=== PATIENT | male | born 1980 ===

== ENCOUNTER 2023-10-03 16:12 | Observation (INO) | payer OTHER ==
[~2023-10-03] VITALS: Ht 172.7 cm; Wt 83.0 kg
[~2023-10-03 16:12] MED LIST: Bactrim Ds Tab1 EACH PO; CEPH500 PO; HYDHCL25 PO; IBUP800 PO; TRIA15CR3 TOP; Ultram50 MG PO
[2023-10-03] MEDS ORDERED: Prinivil10 MG PO (16:34)
[2023-10-03 16:42] LABS: Source, Urine Clean Catch
[2023-10-03 16:46] LABS: Appearance, Urine Clear (Clear); Bilirubin, Urine Neg (Neg); Blood, Urine Neg (Neg); Color, Urine Amber (P-Yellow); Glucose Qualitative, Urine Neg (Neg); Ketones, Urine Neg (Neg); Leukocyte Esterase, Urine 1+ (Neg); Nitrite, Urine Neg (Neg); Protein, Urine 1+ (Neg); Specific Gravity, Urine 1.015 (1.003-1.022); Urobilinogen, Urine 4+ (Normal)
[2023-10-03 17:02] LABS: Bacteria Few /hpf; Hyaline Casts 0-2 /lpf (0-2); Mucus Mod (0-Heavy); Red Blood Cells, Urine 0-2 /hpf (0-2); Squamous Epithelial Cells Few /hpf (Few)
[2023-10-03 17:33] LABS: U Amphetamine Screen DETECTED; U Barbituate Screen Not Detected; U Benzodiazapine Screen Not Detected; U Cocaine Screen Not Detected; U Methamphetamine Screen DETECTED
[2023-10-03 17:34] LABS: U Buprenorphine Screen Not Detected; U Cannabinoids Screen Not Detected; U Methadone Screen Not Detected; U Opiates Screen Not Detected; U Oxycodone Screen Not Detected; U Phencyclidine Screen Not Detected
[2023-10-03 17:59] LABS: BASOPHILS ABSOLUTE AUTO 0.04 K/mm3 (0.00-0.23); BASOPHILS PERCENT AUTO 1 % (0-2); EOSINOPHILS ABSOLUTE AUTO 0.23 K/mm3 (0.00-0.68); EOSINOPHILS PERCENT AUTO 4 % (0-6); Hematocrit 44.6 % (37.0-53.0); IMMATURE GRAN ABSOLUTE AUTO 0.01 K/mm3 (0.00-0.10); IMMATURE GRAN PERCENT AUTO 0 % (0-1); LYMPHOCYTES ABSOLUTE AUTO 2.45 K/mm3 (0.84-5.20); LYMPHOCYTES PERCENT AUTO 38 % (21-46); MONOCYTES ABSOLUTE AUTO 0.46 K/mm3 (0.16-1.47); MONOCYTES PERCENT AUTO 7 % (4-13); Mean Corpuscular HGB 26.3 pg (26.0-34.0); Mean Corpuscular HGB Conc 33.6 g/dL (31.5-36.5); Mean Corpuscular Volume 78 fL (80-100); Mean Platelet Volume 10.8 fL (9.1-12.4); NEUTROPHILS ABSOLUTE AUTO 3.32 K/mm3 (1.96-9.15); NEUTROPHILS PERCENT AUTO 51 % (41-73); Platelet Count 268 K/mm3 (150-400); RDW Coefficient Variation 13.9 % (11.7-14.2); RDW Standard Deviation 38.8 fL (35.1-46.3); Red Blood Cell Count 5.71 M/mm3 (4.30-5.90); White Blood Cell Count 6.51 K/mm3 (4.00-11.30)
[2023-10-03 18:20] LABS: Ethanol (Alcohol), Blood, Med 150 mg/dL; Salicylate <1.7 mg/dL (2.8-20.0)
[2023-10-03 18:21] LABS: Alanine Aminotransfer (ALT/SGP 306 U/L (12-78); Albumin, Blood 3.6 g/dL (3.4-5.0); Albumin/Globulin Ratio 0.9 (0.8-1.8); Alk Phos 98 U/L (50-136); Anion Gap 5 mmol/L (6-16); Aspartate Aminotrans (AST/SGOT 226 U/L (12-37); Bilirubin, Total 0.7 mg/dL (0.1-1.0); Blood Urea Nitrogen 14 mg/dL (8-24); CO2, Blood 25 mmol/L (21-32); Calcium, Blood 8.6 mg/dL (8.5-10.1); Chloride, Blood 108 mmol/L (98-108); Creatinine, Blood 0.82 mg/dL (0.60-1.20); Globulin, Blood 4.1 g/dL (2.2-4.0); Glomerular Filtration Rate 114 (60-); Glucose, Blood 112 mg/dL (70-99); Potassium, Blood 3.1 mmol/L (3.5-5.5); Sodium, Blood 138 mmol/L (136-145); Total Protein, Blood 7.7 g/dL (6.4-8.2)
[2023-10-03 18:35] LABS: Acetaminophen, Random <2.0 ug/mL (10.0-30.0)
[2023-10-03] MEDS ORDERED: Potassium Chloride 20 MEQ TabCR PO ONE (18:45)
[2023-10-03] MEDS ORDERED: Folic Acid 1 MG TAB PO ONE (18:50)
[2023-10-03] MEDS ORDERED: Thiamine HCl 100 MG Tab PO ONE (18:50)
[2023-10-03] MEDS ORDERED: LORazepam 1 MG Tab PO SCH (21:00)
[2023-10-03] MEDS ORDERED: QUEtiapine Fumarate 100 MG Tab PO SCH (21:00)
[2023-10-05] MEDS ORDERED: Acetaminophen 325 MG TABLET PO ONE (17:30)
[2023-10-05] MEDS ORDERED: Nicotine 21 MG PATCH TOP ONE (18:25)
[2023-10-06] MEDS ORDERED: QUEtiapine Fumarate 25 MG Tab PO PRN (15:30)
[2023-10-06] MEDS ORDERED: OLANZapine 10 MG Vial IM PRN (15:30)
[2023-10-07] MEDS ORDERED: Nicotine 21 MG PATCH TOP SCH (09:00)
[2023-10-07 09:24] VITALS: BP 140/92
[2023-10-07 13:30] LABS: Albumin, Blood 3.4 g/dL (3.4-5.0); Albumin/Globulin Ratio 0.9 (0.8-1.8); Bilirubin, Total 0.3 mg/dL (0.1-1.0); Bun/Creatinine Ratio 18.9 (12.0-20.0); Calcium, Blood 9.3 mg/dL (8.5-10.1); Creatinine, Blood 0.85 mg/dL (0.60-1.20); Globulin, Blood 3.8 g/dL (2.2-4.0); Potassium, Blood 4.5 mmol/L (3.5-5.5); Total Protein, Blood 7.2 g/dL (6.4-8.2)
== END 2023-10-07 18:22 ==
LOC: ER 16:12 → EOR 16:13
PROVIDERS: Emergency Medicine; Student in an Organized Health Care Education/Training Program; ADMIT Psychiatry & Neurology Psychiatry
DX: F33.3 Major depressive disorder, recurrent, severe with psychotic symptoms (principal); F15.10 Other stimulant abuse, uncomplicated; F10.10 Alcohol abuse, uncomplicated; Y90.6 Blood alcohol level of 120-199 mg/100 ml; I10 Essential (primary) hypertension
CPT/HCPCS: 80053; 81001; 85025; 86592; 87086; 93005; 93010; 99285-25; A9270; G0378; G0480